=== PATIENT | female | born 1990 | race American Indian/Alaskan Native ===

== ENCOUNTER 2017-02-18 23:01 | Emergency (ER) | payer MEDICAID ==
[2017-02-18 23:46] LABS: Urine Drugs of Abuse Note Disclamer
[2017-02-19 00:09] LABS: Bilirubin,Urine NEG (Negative); Blood,Urine NEG (Negative); Ketones,Urine NEG (Negative); Leukocyte Esterase,Urine NEG (Negative); Mucus,Urine 3+ /HPF; Nitrite,Urine NEG (Negative); Urobilinogen,Urine < 2.0 mg/dL (<2.0)
[2017-02-19 00:36] LABS: Basophils % (Auto) 0.8 % (0.0-1.8); Eosinophils % (Auto) 0.9 % (0.0-4.3); Hematocrit 29.9 % (30.3-42.9); Hemoglobin 9.7 gm/dl (10.1-14.3); Mean Corpuscular HGB Conc 32 % (30-34); Mean Corpuscular Volume 79 fl (79-97); Platelet Count 212 K/mm3 (140-440); Red Blood Count 3.77 M/mm3 (3.65-5.03); Red Cell Distribution Width 13.9 % (13.2-15.2)
[2017-02-19 00:41] LABS: Anion Gap 16 mmol/L; Blood Urea Nitrogen 10 mg/dL (7-17); Calcium 8.8 mg/dL (8.4-10.2); Carbon Dioxide 24 mmol/L (22-30); Chloride 100.3 mmol/L (98-107); Glucose 108 mg/dL (65-100); Potassium 3.2 mmol/L (3.6-5.0); Sodium 137 mmol/L (137-145)
[2017-02-19 00:53] LABS: Mean Corpuscular Hemoglobin 26 pg (28-32)
[2017-02-19] MEDS ORDERED: K-DUR PO ONE (01:40)
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
[2017-02-19 08:14] VITALS: BP 106/70
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
== END 2017-02-19 22:54 ==
LOC: ED 23:01 → EEVIPCON 23:01 → ED 02-19 22:54
DX: F91.8 Other conduct disorders (principal); F30.9 Manic episode, unspecified; F20.9 Schizophrenia, unspecified; F32.9 Major depressive disorder, single episode, unspecified
CPT/HCPCS: 36415; 80048; 80307; 81001; 81025; 85025; 99285; G0480; 80320

== ENCOUNTER 2017-11-22 06:37 | Emergency (ER) | payer SELFPAY ==
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
[2017-11-22 09:05] LABS: Basophils % (Auto) 0.5 % (0.0-1.8); Eosinophils % (Auto) 0.7 % (0.0-4.3); Hematocrit 37.8 % (30.3-42.9); Hemoglobin 12.1 gm/dl (10.1-14.3); Lymphocytes # (Auto) 1.4 K/mm3 (1.2-5.4); Lymphocytes % (Auto) 28.2 % (13.4-35.0); Mean Corpuscular HGB Conc 32 % (30-34); Mean Corpuscular Volume 79 fl (79-97); Monocytes # (Auto) 0.6 K/mm3 (0.0-0.8); Monocytes % (Auto) 11.7 % (0.0-7.3); Platelet Count 221 K/mm3 (140-440); Red Blood Count 4.82 M/mm3 (3.65-5.03); Red Cell Distribution Width 14.5 % (13.2-15.2)
[2017-11-22 09:09] LABS: Mean Corpuscular Hemoglobin 25 pg (28-32)
[2017-11-22 09:33] LABS: Alanine Aminotransferase 9 units/L (7-56); Albumin 4.4 g/dL (3.9-5); BUN/Creatinine Ratio 18; Blood Urea Nitrogen 9 mg/dL (7-17); Calcium 9.4 mg/dL (8.4-10.2); Hemolysis Index 4
[2017-11-22 10:32] LABS: Bilirubin,Urine NEG (Negative); Blood,Urine NEG (Negative); Color,Urine Yellow (Yellow); Mucus,Urine 1+ /HPF; Nitrite,Urine NEG (Negative); Urobilinogen,Urine < 2.0 mg/dL (<2.0)
[2017-11-22 11:13] LABS: Amphetamine Screen,Urine PRESUMPTIVE NEGATIVE; Benzodiazepines Screen,Urine PRESUMPTIVE NEGATIVE; Cannabinoid Screen,Urine PRESUMPTIVE NEGATIVE; Cocaine Screen,Urine PRESUMPTIVE NEGATIVE; Methadone Screen,Urine PRESUMPTIVE NEGATIVE; Opiate Screen,Urine PRESUMPTIVE NEGATIVE
[2017-11-23 12:23] VITALS: BP 113/69
--- NOTE | 2017-11-23 14:55 | Consultation ---
History of Present Illness - Reason for Consult Consult date: 11/23/17 Reason for consult: Mental Health Evaluation Requesting physician: PARDEEP LIEBERMAN - Chief Complaint Chief complaint: "I am good" - History of Present Psychiatric Illness Patient is 27-year-old AA female presented to [facility] for combative behavior, she was brought in by [facility]. Today the patient is calm, but hyper verbal during the assessment. She stated that she have not slept in 3 days and had some sort of "outburst" at her home. When she asked to elaborate about the "outburst" she stated, "I don't remember everything." She had to be redirected several time because she was talking so much during the interview. She denies being on psy medication, but per the record from a previous admission, the patient has been noncompliant with her Risperdal injections per February 2017. She denies SI/HI's and AVH's. She denies recreational drug use and alcohol consumption (etoh). Overall, the patient is a poor historian at this time. Medications and Allergies Allergies Allergy/AdvReac Type Severity Reaction Status Date / Time cheese Allergy Vomiting Uncoded 07/31/15 13:06 Home Medications Medication Instructions Recorded Confirmed Last Taken Type No Known Home Medications [No 02/19/17 11/22/17 Unknown History Reported Home Medications] Past psychiatric history - Past Medical History Past Medical History: No medical history (Vaginal x 3), other Past Surgical History: No surgical history - past Psychiatric treatment and history psychiatric treatment history: Inpatient psy services per the record. The patient denies a fam psy hx. - Social History Social history: other (reside with a friend per the patient) Mental Status Exam - Vital signs Last Vital Signs Temp 97.9 F 11/23/17 10:00 Pulse 85 11/23/17 10:00 Resp 18 11/23/17 12:24 BP 113/69 11/23/17 10:00 Pulse Ox 100 11/23/17 10:00 - Exam Narrative exam: MSE: Appearance: calm, cooperative Behavior: regular eye contact Speech: hyper verbal Mood: "okay" Affect: labile Thought Process: circumstantial Thought Content: denies SI/HI's and AVH's Motor Activity: ambulatory Cognition: A/O x 3 Insight: variable Judgment: variable Results Result Diagrams: 11/22/17 07:41 11/22/17 07:41 All other labs normal. Assessment and Plan Assessment and plan: Impression: Bipolar DO. Today the patient is calm, but hyper verbal during the assessment. DDx: R/O Schizophrenia Recommendation/Plan: Continue 1013 with placement to inpatient psy services. Start Depakote 500 mg PO BID for mood.
[2017-11-23 20:04] LABS: Alanine Aminotransferase 10 units/L (7-56); Lipase 20 units/L (13-60)
== END 2017-11-24 00:59 ==
LOC: ED 06:37 → EEVIPCON 06:37 → ED 11-24 00:59
DX: F20.9 Schizophrenia, unspecified (principal); F32.9 Major depressive disorder, single episode, unspecified
CPT/HCPCS: 36415; 80053; 80307; 81001; 82150; 83690; 84075; 84450; 84460; 84703; 85025; 99285; G0480; 80320

== ENCOUNTER 2019-07-01 10:57 | Emergency (ER) | payer SELFPAY ==
[2019-07-01 11:08] VITALS: BP 112/66
== END 2019-07-01 11:25 | disposition left against medical advice (07) ==
LOC: ED 10:57
DX: Z00.8 Encounter for other general examination (principal); Z53.21 Procedure and treatment not carried out due to patient leaving prior to being seen by health care provider

== ENCOUNTER 2019-12-06 20:07 | Emergency (ER) | payer MEDICAID, OTHER ==
[2019-12-06 20:42] VITALS: BP 96/63
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
== END 2019-12-06 22:34 | disposition left against medical advice (07) ==
LOC: ED 20:07
DX: S16.1XXA Strain of muscle, fascia and tendon at neck level, initial encounter (principal); S39.012A Strain of muscle, fascia and tendon of lower back, initial encounter; S43.491A Other sprain of right shoulder joint, initial encounter; Z91.018 Allergy to other foods; V89.0XXA Person injured in unspecified motor-vehicle accident, nontraffic, initial encounter; Y93.89 Activity, other specified; Y92.410 Unspecified street and highway as the place of occurrence of the external cause; Y99.8 Other external cause status
CPT/HCPCS: 99282